=== PATIENT | male | born 1930 | race Asian ===

== ENCOUNTER 2017-05-02 14:47 | Emergency (ER) | payer OTHER, BC ==
[~2017-05-02] VITALS: Ht 152.4 cm; Wt 53.1 kg
[2017-05-02] MEDS ORDERED: LIDODERM 5% P1 PATCH TD (17:27)
[2017-05-02] MEDS ORDERED: FLEXERIL5 MG PO (17:27)
[2017-05-02] MEDS ORDERED: MOTRIN400 MG PO (17:28)
[2017-05-02 17:53] VITALS: BP 111/64
== END 2017-05-02 17:55 | disposition home or self-care (01) ==
LOC: EME 14:47
DX: S22.088A Other fracture of T11-T12 vertebra, initial encounter for closed fracture (principal); M25.511 Pain in right shoulder; W10.9XXA Fall (on) (from) unspecified stairs and steps, initial encounter; R10.9 Unspecified abdominal pain; R19.7 Diarrhea, unspecified
CPT/HCPCS: 70450; 72070; 72100

== ENCOUNTER 2017-10-04 13:22 | Inpatient (IN) | payer OTHER, BC ==
[~2017-10-04] VITALS: Ht 157.5 cm; Wt 52.2 kg
[~2017-10-04 13:22] MED LIST: FLEXERIL5 MG PO; LIDODERM 5% P1 PATCH TD; MOTRIN400 MG PO
[2017-10-04 14:09] LABS: HEMATOCRIT 41.2 % (38.0-50.0); HEMOGLOBIN 13.6 G/DL (12.5-16.6); MCH 30.6 PG (29.0-34.0); MCV 92.8 FL (86-99); PLATELET COUNT 174 K/uL (156-360); RBC DIS.WIDTH-SD 50.1 % (39-53); RED BLOOD COUNT 4.44 M/uL (4.00-5.50); WHITE BLOOD COUNT 8.7 K/uL (4.1-10.2)
[2017-10-04 14:20] LABS: CHLORIDE 110 mEq/L (99-109); SODIUM 149 mEq/L (136-147)
[2017-10-04 14:22] LABS: GLUCOSE 165 mg/dL (70-99)
[2017-10-04 14:26] LABS: CREATININE 0.8 mg/dL (0.6-1.3); GFR ESTIMATE (CALCULATED) > 59 mL/min/ (58.99-99999)
[2017-10-04 14:27] LABS: UREA NITROGEN (BUN) 20 mg/dL (9-23)
[2017-10-04 14:32] LABS: TROP-I INTERPRETATION NEGATIVE; TROPONIN-I 0.09 ng/mL (0.0-0.30)
[2017-10-04] MEDS ORDERED: AUGMENTIN875 MG PO (15:23)
[2017-10-04] MEDS ORDERED: AZITHROMYCIN250 MG1 PO (15:23)
[2017-10-04 17:05] LABS: TROP-I INTERPRETATION NEGATIVE; TROPONIN-I 0.09 ng/mL (0.0-0.30)
[2017-10-04] MEDS ORDERED: LASIX40 MG PO (17:12)
[2017-10-04] MEDS ORDERED: GLUCOPHAGE500 MG PO (17:12)
[2017-10-04] MEDS ORDERED: KLOR-CON 1010 ME1 PO (17:13)
[2017-10-04 19:44] LABS: APPEARANCE TURBID ((CLEAR)); BILIRUBIN SMALL; BLOOD LARGE; GLUCOSE (STRIP) NEGATIVE; KETONES NEGATIVE; LEUKOCYTES MODERATE; NITRITE NEGATIVE; PROTEIN (STRIP) 100; SPECIFIC GRAVITY 1.016 (1.000-1.030)
[2017-10-04 19:48] LABS: COLOR YELLOW ((YELLOW))
[2017-10-04 20:01] LABS: EPITHELIAL CELLS RARE /HPF; WHITE BLOOD CELLS TNTC /HPF (0-5)
[2017-10-04 20:02] LABS: AMORPHOUS URATES CRYSTALS 3+; BACTERIA 4+ /HPF; UCUL ADDED? YES
[2017-10-04 23:00] VITALS: BP 115/68
[2017-10-04 23:19] VITALS: BP 115/68
[2017-10-05 03:59] VITALS: BP 122/58
[2017-10-05 05:03] LABS: HEMATOCRIT 38.6 % (38.0-50.0); HEMOGLOBIN 12.8 G/DL (12.5-16.6); MCH 31.1 PG (29.0-34.0); MCHC 33.2 G/DL (30.0-36.0); MCV 93.7 FL (86-99); RBC DIS.WIDTH-CV 15.3 % (11.8-14.6); RBC DIS.WIDTH-SD 51.8 % (39-53); RED BLOOD COUNT 4.12 M/uL (4.00-5.50); WHITE BLOOD COUNT 7.1 K/uL (4.1-10.2)
[2017-10-05 05:23] LABS: ALBUMIN 3.1 g/dL (3.2-4.8); CHLORIDE 111 mEq/L (99-109); POTASSIUM 3.4 mEq/L (3.7-5.4); SODIUM 144 mEq/L (136-147)
[2017-10-05 05:25] LABS: GLUCOSE 143 mg/dL (70-99)
[2017-10-05 05:26] LABS: TOTAL PROTEIN 5.2 g/dL (6.4-8.3)
[2017-10-05 05:29] LABS: ALKALINE PHOSPHATASE 68 IU/L (3-129); CREATININE 0.7 mg/dL (0.6-1.3); GFR ESTIMATE (CALCULATED) > 59 mL/min/ (58.99-99999)
[2017-10-05 05:30] LABS: UREA NITROGEN (BUN) 18 mg/dL (9-23)
[2017-10-05 05:31] LABS: AST (GOT) 19 IU/L (2-34)
[2017-10-05 05:32] LABS: ALT (GPT) 19 IU/L (3-49)
[2017-10-05 05:55] LABS: PLAT.SUFFICIENCY ADEQUATE; PLATELET COUNT 122 K/uL (156-360)
[2017-10-05 07:29] VITALS: BP 118/71
[2017-10-05 09:24] LABS: HEMOGLOBIN A1c (GLYCOHEMOGLOB) 6.3 % (Below 5.7)
[2017-10-05 11:59] VITALS: BP 136/73
[2017-10-05 16:46] VITALS: BP 128/60
[2017-10-05 20:00] VITALS: BP 145/87
[2017-10-06 00:13] VITALS: BP 127/76
[2017-10-06 03:53] VITALS: BP 112/79
[2017-10-06 06:03] LABS: CHLORIDE 108 MEQ/L (99-109); CREATININE 0.7 MG/DL (0.6-1.3); GFR ESTIMATE (CALCULATED) > 59 mL/min/ (58.99-99999); GLUCOSE 121 mg/dL (70-99); POTASSIUM 3.3 MEQ/L (3.7-5.4); SODIUM 147 MEQ/L (136-147); UREA NITROGEN (BUN) 16 mg/dL (9-23)
[2017-10-06 07:00] VITALS: BP 143/76
[2017-10-06 11:18] VITALS: BP 124/76
[2017-10-06 16:00] VITALS: BP 126/84
[2017-10-06 20:35] VITALS: BP 167/58
[2017-10-07] VITALS (7 sets, daily range): BP systolic 103–172; BP diastolic 59–84
[2017-10-07 07:54] LABS: CHLORIDE 103 MEQ/L (99-109); CREATININE 0.6 MG/DL (0.6-1.3); GFR ESTIMATE (CALCULATED) > 59 mL/min/ (58.99-99999); GLUCOSE 177 mg/dL (70-99); POTASSIUM 3.6 MEQ/L (3.7-5.4); SODIUM 143 MEQ/L (136-147); UREA NITROGEN (BUN) 16 mg/dL (9-23)
[2017-10-08 03:51] VITALS: BP 102/70
[2017-10-08 06:40] LABS: CHLORIDE 107 MEQ/L (99-109); CREATININE 0.7 MG/DL (0.6-1.3); GFR ESTIMATE (CALCULATED) > 59 mL/min/ (58.99-99999); GLUCOSE 123 mg/dL (70-99); POTASSIUM 4.3 MEQ/L (3.7-5.4); SODIUM 144 MEQ/L (136-147); UREA NITROGEN (BUN) 22 mg/dL (9-23)
[2017-10-08 08:15] VITALS: BP 155/74
[2017-10-08 10:59] VITALS: BP 104/66
[2017-10-08 16:08] VITALS: BP 103/67
[2017-10-08 19:25] VITALS: BP 123/77
[2017-10-08 23:40] VITALS: BP 97/53
[2017-10-09 03:46] VITALS: BP 94/53
[2017-10-09 07:20] VITALS: BP 113/68
[2017-10-09 11:30] VITALS: BP 132/65
[2017-10-09 15:22] VITALS: BP 126/74
[2017-10-09] MEDS ORDERED: CARVEDILOL6.25 MG PO (17:44)
[2017-10-09] MEDS ORDERED: DOCUSATE SODIU100 MG PO (17:44)
[2017-10-09] MEDS ORDERED: FUROSEMIDE20 MG PO (17:44)
[2017-10-09] MEDS ORDERED: LISINOPRIL5 MG PO (17:44)
[2017-10-09] MEDS ORDERED: KLOR-CON 1010 ME1 PO (17:44)
[2017-10-09] MEDS ORDERED: KLOR-CON M1010 MEQ PO (17:44)
[2017-10-09] MEDS ORDERED: PREDNISONE10 MG PO (17:44)
[2017-10-09] MEDS ORDERED: ASPIR-LOW81 MG PO (17:44)
== END 2017-10-09 18:26 | disposition home or self-care (01) | DRG 193 ==
LOC: EME 13:22 → 3EAST 16:19 → EDOF 16:19 → ENRESERV 17:18 → 3EAST 22:40
PROVIDERS: Emergency Medicine Emergency Medical Services; Internal Medicine; Internal Medicine Cardiovascular Disease
DX: J18.9 Pneumonia, unspecified organism (principal); I11.0 Hypertensive heart disease with heart failure; I50.23 Acute on chronic systolic (congestive) heart failure; E87.6 Hypokalemia; R09.02 Hypoxemia; I08.2 Rheumatic disorders of both aortic and tricuspid valves; I27.20 Pulmonary hypertension, unspecified; N39.0 Urinary tract infection, site not specified; L03.113 Cellulitis of right upper limb; I42.0 Dilated cardiomyopathy; I47.1 Supraventricular tachycardia; M48.00 Spinal stenosis, site unspecified; E11.9 Type 2 diabetes mellitus without complications; N40.0 Benign prostatic hyperplasia without lower urinary tract symptoms; H91.90 Unspecified hearing loss, unspecified ear
CPT/HCPCS: 71045; 71046; 71260; 80048; 80053; 81003; 82948; 83036; 83880; 84153; 84484; 85027; 87040; 87077; 87086; 87186; 93005; 93306; 94640; 94640 76; 99281; 99285; J0456; J0696; J1644; J1815; J1940; J7512

== ENCOUNTER 2018-01-03 13:08 | Inpatient (IN) | payer OTHER, BC ==
[~2018-01-03] VITALS: Ht 154.9 cm; Wt 62.1 kg
[~2018-01-03 13:08] MED LIST changes: +ASPIR-LOW81 MG PO; +AUGMENTIN875 MG PO; +AZITHROMYCIN250 MG1 PO; +CARVEDILOL6.25 MG PO; +DOCUSATE SODIU100 MG PO; +FUROSEMIDE20 MG PO; +GLUCOPHAGE500 MG PO; +KLOR-CON 1010 ME1 PO; +KLOR-CON M1010 MEQ PO; +LASIX40 MG PO; +LISINOPRIL5 MG PO; +PREDNISONE10 MG PO
[2018-01-03 13:44] LABS: HEMATOCRIT 32.7 % (38.0-50.0); HEMOGLOBIN 10.9 G/DL (12.5-16.6); MCH 30.4 PG (29.0-34.0); MCHC 33.3 G/DL (30.0-36.0); MCV 91.3 FL (86-99); PLATELET COUNT 78 K/uL (156-360); RBC DIS.WIDTH-CV 13.2 % (11.8-14.6); RBC DIS.WIDTH-SD 44.7 % (39-53); RED BLOOD COUNT 3.58 M/uL (4.00-5.50); WHITE BLOOD COUNT 5.7 K/uL (4.1-10.2)
[2018-01-03 13:57] LABS: CHLORIDE 102 mEq/L (99-109); POTASSIUM 3.7 mEq/L (3.7-5.4); SODIUM 137 mEq/L (136-147)
[2018-01-03 13:59] LABS: GLUCOSE 158 mg/dL (70-99)
[2018-01-03 14:03] LABS: CREATININE 0.9 mg/dL (0.6-1.3); GFR ESTIMATE (CALCULATED) > 59 mL/min/ (58.99-99999); UREA NITROGEN (BUN) 18 mg/dL (9-23)
[2018-01-03 15:11] LABS: ABS NEUTROPHIL COUNT 5.4; ANISOCYTOSIS 1+; BAND NEUTROPHILS 37.7 % (0-8.0); EOSINOPHIL ABS CT 0; LYMPHOCYTES 1.7 % (15.0-45.0); METAMYELOCYTES 1.8 %; MYELOCYTES 1.8 %; NUCLEATED RBC'S 0.9
[2018-01-03] MEDS ORDERED: ENTRESTO 24 MG1 EACH PO (17:12)
[2018-01-03] MEDS ORDERED: FINASTERIDE5 MG PO (17:14)
[2018-01-03] MEDS ORDERED: TAMSULOSIN HCL0.4 MG PO (17:15)
[2018-01-03] MEDS ORDERED: ULTRAM50 MG PO (17:15)
[2018-01-03] MEDS ORDERED: BAYER BACK & B1 EACH PO (17:16)
[2018-01-03 19:27] LABS: HEMATOCRIT 28.4 % (38.0-50.0); HEMOGLOBIN 9.5 G/DL (12.5-16.6); MCH 30.4 PG (29.0-34.0); MCHC 33.5 G/DL (30.0-36.0); MCV 90.7 FL (86-99); PLATELET COUNT 71 K/uL (156-360); RBC DIS.WIDTH-CV 13.4 % (11.8-14.6); RED BLOOD COUNT 3.13 M/uL (4.00-5.50); WHITE BLOOD COUNT 14.2 K/uL (4.1-10.2)
[2018-01-03 19:37] LABS: CHLORIDE 103 mEq/L (99-109); POTASSIUM 3.5 mEq/L (3.7-5.4); SODIUM 137 mEq/L (136-147)
[2018-01-03 19:38] LABS: GLUCOSE 198 mg/dL (70-99)
[2018-01-03 19:42] LABS: CREATININE 0.9 mg/dL (0.6-1.3); GFR ESTIMATE (CALCULATED) > 59 mL/min/ (58.99-99999)
[2018-01-03 19:43] LABS: UREA NITROGEN (BUN) 20 mg/dL (9-23)
[2018-01-03 19:45] VITALS: BP 118/63
[2018-01-03 20:00] VITALS: BP 107/77
[2018-01-03 20:08] LABS: ABS NEUTROPHIL COUNT 13.7; ANISOCYTOSIS 1+; EOSINOPHIL ABS CT 0; MACROCYTES 1+; MONOCYTES 3.5 % (0-9.0); PLAT.SUFFICIENCY DECREASED; SEG.NEUTROPHILS 38.6 % (46.0-76.0)
[2018-01-03 20:17] LABS: BAND NEUTROPHILS 57.9 % (0-8.0)
[2018-01-03 21:00] VITALS: BP 108/55
[2018-01-03 22:00] VITALS: BP 91/59
[2018-01-03 22:55] VITALS: BP 100/58
[2018-01-04] VITALS (27 sets, daily range): BP systolic 69–119; BP diastolic 42–79
[2018-01-04 05:53] LABS: BASOPHIL (%) 0.2 % (0-1); EOSINOPHIL (%) 0 % (0-5); HEMATOCRIT 33.5 % (38.0-50.0); HEMOGLOBIN 10.7 G/DL (12.5-16.6); IMMATURE GRANULOCYTE (%) 3.1 % (0.0-0.7); LYMPHOCYTE (%) 1.5 % (15-42); LYMPHOCYTE COUNT 0.2 K/uL (1.0-2.8); MCH 29.6 PG (29.0-34.0); MCHC 31.9 G/DL (30.0-36.0); MCV 92.5 FL (86-99); MONOCYTE (%) 2.7 % (3-12); MONOCYTE COUNT 0.4 K/uL (0-0.8); NEUTROPHIL (%) 92.5 % (45-76); NEUTROPHIL COUNT 11.8 K/uL (1.8-6.4); PLATELET COUNT 85 K/uL (156-360); RBC DIS.WIDTH-CV 13.6 % (11.8-14.6); RBC DIS.WIDTH-SD 46.5 % (39-53); RED BLOOD COUNT 3.62 M/uL (4.00-5.50); WHITE BLOOD COUNT 12.7 K/uL (4.1-10.2)
[2018-01-04 06:18] LABS: ALBUMIN 2.7 G/DL (3.2-4.8); ALKALINE PHOSPHATASE 52 IU/L (3-129); ALT (GPT) 16 IU/L (3-49); AST (GOT) 38 IU/L (2-34); CHLORIDE 105 MEQ/L (99-109); CREATININE 0.7 MG/DL (0.6-1.3); GFR ESTIMATE (CALCULATED) > 59 mL/min/ (58.99-99999); GLUCOSE 167 mg/dL (70-99); MAGNESIUM 1.9 mg/dl (1.3-2.7); PHOSPHORUS 3.3 mg/dL (2.5-4.9); POTASSIUM 3.5 MEQ/L (3.7-5.4); SODIUM 138 MEQ/L (136-147); TOTAL BILIRUBIN 0.6 MG/DL (0.0-1.0); TOTAL PROTEIN 5.2 G/DL (6.4-8.3); UREA NITROGEN (BUN) 18 mg/dL (9-23)
[2018-01-04 09:56] LABS: APPEARANCE CLOUDY ((CLEAR)); BILIRUBIN NEGATIVE; BLOOD MODERATE; COLOR YELLOW ((YELLOW)); GLUCOSE (STRIP) NEGATIVE; KETONES 5; LEUKOCYTES LARGE; NITRITE NEGATIVE; PROTEIN (STRIP) 30; SPECIFIC GRAVITY 1.021 (1.000-1.030); UROBILINOGEN 0.2 MG/DL (0.2-1.0)
[2018-01-04 10:10] LABS: BACTERIA 1+ /HPF; EPITHELIAL CELLS NONE SEEN /HPF; MUCUS NONE SEEN /LPF; RED BLOOD CELLS 30-40 /HPF (0-5); WHITE BLOOD CELLS 40-50 /HPF (0-5)
[2018-01-05] VITALS (17 sets, daily range): BP systolic 77–149; BP diastolic 52–108
[2018-01-05 05:49] LABS: HEMATOCRIT 33.5 % (38.0-50.0); MCH 29.4 PG (29.0-34.0); MCHC 32.8 G/DL (30.0-36.0); MCV 89.6 FL (86-99); PLATELET COUNT 94 K/uL (156-360); RBC DIS.WIDTH-CV 13.6 % (11.8-14.6); RBC DIS.WIDTH-SD 44.6 % (39-53); RED BLOOD COUNT 3.74 M/uL (4.00-5.50); WHITE BLOOD COUNT 9.5 K/uL (4.1-10.2)
[2018-01-05 06:22] LABS: CHLORIDE 114 MEQ/L (99-109); CREATININE 0.7 MG/DL (0.6-1.3); GFR ESTIMATE (CALCULATED) > 59 mL/min/ (58.99-99999); GLUCOSE 167 mg/dL (70-99); POTASSIUM 3.6 MEQ/L (3.7-5.4); SODIUM 140 MEQ/L (136-147); UREA NITROGEN (BUN) 20 mg/dL (9-23)
[2018-01-05 06:27] LABS: MAGNESIUM 2.2 mg/dl (1.3-2.7); PHOSPHORUS 1.9 mg/dL (2.5-4.9)
[2018-01-05 07:37] LABS: ABS NEUTROPHIL COUNT 8.7; ANISOCYTOSIS 2+; BAND NEUTROPHILS 39.8 % (0-8.0); BURR CELLS 1+; EOSINOPHIL ABS CT 0; LYMPHOCYTES 1.8 % (15.0-45.0); MACROCYTES 2+; MONOCYTES 7.1 % (0-9.0); PLAT.SUFFICIENCY DECREASED; POIKILOCYTOSIS 2+; SEG.NEUTROPHILS 51.3 % (46.0-76.0)
[2018-01-05 18:22] LABS: COMMENTS - BLOOD GASES A+C+; DEVICE 840; FI02 100 %; MODE A/C; SITE LR
[2018-01-05 18:23] LABS: MECHANICAL RATE 16 resp/min; PEEP 5 CM/H20; TIDAL VOLUME 420 ML; TOTAL RESP RATE 16 resp/min
[2018-01-05 18:24] LABS: BASE EXCESS -12.6 mEq/L (-3 to +3); BICARBONATE 14.4 mEq/L (22-26); CARBOXY HGB 1.4 % (0-5); METHEMOGLOBIN 1.2 % (0-1.5); PCO2 36 mm Hg (35-45); PO2 207 mm Hg (80-100)
[2018-01-05 18:25] LABS: pH 7.21 (7.35-7.45)
[2018-01-05 19:01] LABS: TROP-I INTERPRETATION INDETERMINATE; TROPONIN-I 0.31 ng/mL (0.0-0.30)
[2018-01-05 19:07] LABS: INTER. NORMALIZED RATIO 1.1
[2018-01-05 19:09] LABS: HEMATOCRIT 36.9 % (38.0-50.0); HEMOGLOBIN 11.6 G/DL (12.5-16.6); MCH 29.9 PG (29.0-34.0); MCHC 31.4 G/DL (30.0-36.0); NRBC (%) 0.3 /100 WBC (0-0); RBC DIS.WIDTH-CV 14.2 % (11.8-14.6); RBC DIS.WIDTH-SD 49.8 % (39-53); RED BLOOD COUNT 3.88 M/uL (4.00-5.50)
[2018-01-05 19:10] LABS: PTT 38.6 SEC (25-37)
[2018-01-05 19:15] LABS: ABS NEUTROPHIL COUNT 13.3; ANISOCYTOSIS 2+; BAND NEUTROPHILS 52.2 % (0-8.0); BURR CELLS 1+; EOSINOPHIL ABS CT 0; LYMPHOCYTES 6.1 % (15.0-45.0); MACROCYTES 2+; METAMYELOCYTES 0.8 %; MONOCYTES 3.5 % (0-9.0); OTHER 0.9; OVALOCYTES 1+; PLAT.SUFFICIENCY ADEQUATE; POIKILOCYTOSIS 1+; SCHISTOCYTES 1+; SEG.NEUTROPHILS 36.5 % (46.0-76.0); SMUDGE CELLS 5.2
[2018-01-05 19:20] LABS: MCV 95.1 FL (86-99); PLATELET COUNT 126 K/uL (156-360)
[2018-01-05 20:17] LABS: CHLORIDE 114 MEQ/L (99-109); CKMB RELATIVE INDEX 5.5 (0.0-3.9); CREATINE KINASE 128 IU/L (1-294); CREATININE 0.7 MG/DL (0.6-1.3); GFR ESTIMATE (CALCULATED) > 59 mL/min/ (58.99-99999); GLUCOSE 216 mg/dL (70-99); MAGNESIUM 2.2 mg/dl (1.3-2.7); PHOSPHORUS 4.5 mg/dL (2.5-4.9); POTASSIUM 3.6 MEQ/L (3.7-5.4); SODIUM 141 MEQ/L (136-147); TOTAL CK 128 IU/L (1-294); UREA NITROGEN (BUN) 19 mg/dL (9-23)
[2018-01-05 21:55] LABS: COMMENTS - BLOOD GASES A+C+; DEVICE VENT; FI02 100 %; MECHANICAL RATE 20 resp/min; MODE ACVC; PCO2 29 mm Hg (35-45); PEEP 5 CM/H20; SITE LR; TIDAL VOLUME 420 ML; TOTAL RESP RATE 20 resp/min; pH 7.35 (7.35-7.45)
[2018-01-05 21:56] LABS: BASE EXCESS -8.5 mEq/L (-3 to +3); BICARBONATE 16 mEq/L (22-26); CARBOXY HGB 1.1 % (0-5); METHEMOGLOBIN 0.9 % (0-1.5); O2 SATURATION (CALCULATED) 99.5 % (95-99); PO2 357 mm Hg (80-100)
[2018-01-06] VITALS (23 sets, daily range): BP systolic 66–130; BP diastolic 48–83
[2018-01-06 01:17] LABS: INTER. NORMALIZED RATIO 1.2
[2018-01-06 01:18] LABS: POTASSIUM 3.7 mEq/L (3.7-5.4); SODIUM 142 mEq/L (136-147)
[2018-01-06 01:20] LABS: GLUCOSE 191 mg/dL (70-99)
[2018-01-06 01:24] LABS: CREATININE 0.7 mg/dL (0.6-1.3); GFR ESTIMATE (CALCULATED) > 59 mL/min/ (58.99-99999); PHOSPHORUS 2.1 mg/dL (2.5-4.9)
[2018-01-06 01:25] LABS: UREA NITROGEN (BUN) 18 mg/dL (9-23)
[2018-01-06 01:27] LABS: CREATINE KINASE 172 IU/L (1-294); TOTAL CK 172 IU/L (1-294)
[2018-01-06 01:33] LABS: CK-MB 7.8 ng/mL (0.0-4.9); CKMB RELATIVE INDEX 4.5 (0.0-3.9)
[2018-01-06 01:34] LABS: TROP-I INTERPRETATION INDETERMINATE; TROPONIN-I 0.31 ng/mL (0.0-0.30)
[2018-01-06 01:36] LABS: CHLORIDE 116 mEq/L (99-109)
[2018-01-06 05:07] LABS: INTER. NORMALIZED RATIO 1.2
[2018-01-06 05:11] LABS: HEMATOCRIT 30.5 % (38.0-50.0); HEMOGLOBIN 10.4 G/DL (12.5-16.6); MCH 30.2 PG (29.0-34.0); MCHC 34.1 G/DL (30.0-36.0); NRBC (%) 0.3 /100 WBC (0-0); RBC DIS.WIDTH-CV 13.8 % (11.8-14.6); RBC DIS.WIDTH-SD 44.9 % (39-53); RED BLOOD COUNT 3.44 M/uL (4.00-5.50); WHITE BLOOD COUNT 7.8 K/uL (4.1-10.2)
[2018-01-06 05:13] LABS: MCV 88.7 FL (86-99)
[2018-01-06 05:15] LABS: CHLORIDE 117 mEq/L (99-109); POTASSIUM 3.5 mEq/L (3.7-5.4); SODIUM 143 mEq/L (136-147); TROP-I INTERPRETATION NEGATIVE; TROPONIN-I 0.28 ng/mL (0.0-0.30)
[2018-01-06 05:17] LABS: GLUCOSE 175 mg/dL (70-99)
[2018-01-06 05:20] LABS: PHOSPHORUS 2.1 mg/dL (2.5-4.9)
[2018-01-06 05:21] LABS: CREATININE 0.7 mg/dL (0.6-1.3); GFR ESTIMATE (CALCULATED) > 59 mL/min/ (58.99-99999)
[2018-01-06 05:22] LABS: UREA NITROGEN (BUN) 18 mg/dL (9-23)
[2018-01-06 05:23] LABS: CREATINE KINASE 160 IU/L (1-294); TOTAL CK 160 IU/L (1-294)
[2018-01-06 05:34] LABS: CK-MB 7.2 ng/mL (0.0-4.9); CKMB RELATIVE INDEX 4.5 (0.0-3.9)
[2018-01-06 05:50] LABS: ABS NEUTROPHIL COUNT 6.6; ANISOCYTOSIS 2+; ATYPICAL LYMPHOCYTE 0.9 %; BURR CELLS 2+; EOSINOPHIL ABS CT 0.1; EOSINOPHILS 0.9 % (0-5.0); LYMPHOCYTES 7.9 % (15.0-45.0); MACROCYTES 2+; MONOCYTES 4.4 % (0-9.0); MYELOCYTES 1.7 %; PLAT.SUFFICIENCY VERY DECREASED; POIKILOCYTOSIS 2+; SCHISTOCYTES 1+
[2018-01-06 05:53] LABS: BAND NEUTROPHILS 11.4 % (0-8.0); PLATELET COUNT 85 K/uL (156-360); SEG.NEUTROPHILS 72.8 % (46.0-76.0)
[2018-01-06 12:30] LABS: INTER. NORMALIZED RATIO 1.1
[2018-01-06 12:34] LABS: CHLORIDE 117 mEq/L (99-109); POTASSIUM 3.6 mEq/L (3.7-5.4); SODIUM 144 mEq/L (136-147)
[2018-01-06 12:35] LABS: MAGNESIUM 2.1 mg/dL (1.3-2.7)
[2018-01-06 12:36] LABS: GLUCOSE 181 mg/dL (70-99)
[2018-01-06 12:40] LABS: CREATININE 0.7 mg/dL (0.6-1.3); GFR ESTIMATE (CALCULATED) > 59 mL/min/ (58.99-99999); PHOSPHORUS 1.8 mg/dL (2.5-4.9)
[2018-01-06 12:41] LABS: UREA NITROGEN (BUN) 17 mg/dL (9-23)
[2018-01-06 20:51] LABS: M. pneumoniae Ab, IgG 1.83 (<=0.90)
[2018-01-07] VITALS (25 sets, daily range): BP systolic 77–140; BP diastolic 46–94
[2018-01-07 06:01] LABS: HEMATOCRIT 29.4 % (38.0-50.0); MCH 29.9 PG (29.0-34.0); MCV 87.8 FL (86-99); PLATELET COUNT 97 K/uL (156-360); RBC DIS.WIDTH-CV 14.1 % (11.8-14.6); RBC DIS.WIDTH-SD 44.5 % (39-53); RED BLOOD COUNT 3.35 M/uL (4.00-5.50); WHITE BLOOD COUNT 5.1 K/uL (4.1-10.2)
[2018-01-07 06:23] LABS: CHLORIDE 114 MEQ/L (99-109); CREATININE 0.6 MG/DL (0.6-1.3); GFR ESTIMATE (CALCULATED) > 59 mL/min/ (58.99-99999); GLUCOSE 225 mg/dL (70-99); SODIUM 143 MEQ/L (136-147); UREA NITROGEN (BUN) 18 mg/dL (9-23)
[2018-01-07 06:59] LABS: ABS NEUTROPHIL COUNT 4.7; ANISOCYTOSIS 2+; BAND NEUTROPHILS 9.9 % (0-8.0); BURR CELLS 3+; EOSINOPHIL ABS CT 0; HEMATOLOGY COMMENT 1 SN; LYMPHOCYTES 3.6 % (15.0-45.0); MACROCYTES 2+; METAMYELOCYTES 0.9 %; MONOCYTES 3.6 % (0-9.0); NUCLEATED RBC'S 0.9; OVALOCYTES 2+; PLAT.SUFFICIENCY DECREASED; POIKILOCYTOSIS 3+; POLYCHROMASIA 1+; TOXIC GRANULATION 1+
[2018-01-07 08:21] LABS: MAGNESIUM 2.1 mg/dl (1.3-2.7)
[2018-01-07 08:22] LABS: PHOSPHORUS 1.5 mg/dL (2.5-4.9)
[2018-01-08] VITALS (17 sets, daily range): BP systolic 97–157; BP diastolic 61–94
[2018-01-08 05:44] LABS: HEMATOCRIT 27.2 % (38.0-50.0); HEMOGLOBIN 9.3 G/DL (12.5-16.6); MCH 29.9 PG (29.0-34.0); MCHC 34.2 G/DL (30.0-36.0); MCV 87.5 FL (86-99); PLATELET COUNT 92 K/uL (156-360); RBC DIS.WIDTH-CV 14.2 % (11.8-14.6); RBC DIS.WIDTH-SD 45.4 % (39-53); RED BLOOD COUNT 3.11 M/uL (4.00-5.50); WHITE BLOOD COUNT 4.5 K/uL (4.1-10.2)
[2018-01-08 06:08] LABS: CHLORIDE 117 MEQ/L (99-109); CREATININE 0.4 MG/DL (0.6-1.3); GFR ESTIMATE (CALCULATED) > 59 mL/min/ (58.99-99999); GLUCOSE 126 mg/dL (70-99); MAGNESIUM 2.1 mg/dl (1.3-2.7); SODIUM 148 MEQ/L (136-147); UREA NITROGEN (BUN) 12 mg/dL (9-23)
[2018-01-08 06:15] LABS: POTASSIUM 3.9 MEQ/L (3.7-5.4)
[2018-01-08 06:16] LABS: ABS NEUTROPHIL COUNT 3.7; ANISOCYTOSIS 2+; ATYPICAL LYMPHOCYTE 0.9 %; BAND NEUTROPHILS 3.5 % (0-8.0); BASOPHILS 1.7 %; BURR CELLS 1+; EOSINOPHIL ABS CT 0.1; EOSINOPHILS 1.8 % (0-5.0); LYMPHOCYTES 9.6 % (15.0-45.0); MACROCYTES 2+; MONOCYTES 1.7 % (0-9.0); MYELOCYTES 1.7 %; NUCLEATED RBC'S 0.9; OVALOCYTES 1+; PLAT.SUFFICIENCY DECREASED; POIKILOCYTOSIS 1+; SEG.NEUTROPHILS 79.1 % (46.0-76.0)
[2018-01-09] VITALS (8 sets, daily range): BP systolic 119–181; BP diastolic 60–90
[2018-01-09 10:26] LABS: TROP-I INTERPRETATION NEGATIVE; TROPONIN-I 0.12 ng/mL (0.0-0.30)
[2018-01-09 10:29] LABS: HEMOGLOBIN 10.1 G/DL (12.5-16.6); MCHC 32.6 G/DL (30.0-36.0); MCV 89.1 FL (86-99); RBC DIS.WIDTH-CV 14.3 % (11.8-14.6); RED BLOOD COUNT 3.48 M/uL (4.00-5.50); WHITE BLOOD COUNT 5.9 K/uL (4.1-10.2)
[2018-01-09 10:30] LABS: PLATELET COUNT 129 K/uL (156-360)
[2018-01-09 10:53] LABS: CHLORIDE 115 MEQ/L (99-109); CREATININE 0.5 MG/DL (0.6-1.3); GFR ESTIMATE (CALCULATED) > 59 mL/min/ (58.99-99999); GLUCOSE 185 mg/dL (70-99); POTASSIUM 3.8 MEQ/L (3.7-5.4); SODIUM 148 MEQ/L (136-147); UREA NITROGEN (BUN) 12 mg/dL (9-23)
[2018-01-09 13:26] LABS: PTT 35.8 SEC (25-37)
[2018-01-10 05:59] VITALS: BP 114/65
[2018-01-10 06:13] LABS: TROP-I INTERPRETATION NEGATIVE; TROPONIN-I 0.08 ng/mL (0.0-0.30)
[2018-01-10 06:26] LABS: CHLORIDE 111 MEQ/L (99-109); CREATININE 0.5 MG/DL (0.6-1.3); GFR ESTIMATE (CALCULATED) > 59 mL/min/ (58.99-99999); GLUCOSE 200 mg/dL (70-99); POTASSIUM 3.9 MEQ/L (3.7-5.4); SODIUM 148 MEQ/L (136-147); UREA NITROGEN (BUN) 16 mg/dL (9-23)
[2018-01-10 07:48] VITALS: BP 129/87
[2018-01-10 11:16] VITALS: BP 130/78
[2018-01-10 15:47] VITALS: BP 127/70
[2018-01-10 19:16] VITALS: BP 127/66
[2018-01-10 22:42] VITALS: BP 141/75
[2018-01-11 03:26] VITALS: BP 133/77
[2018-01-11 06:51] VITALS: BP 118/75
[2018-01-11 11:10] VITALS: BP 137/71
[2018-01-11 19:48] VITALS: BP 130/77
[2018-01-11 23:42] VITALS: BP 135/67
[2018-01-12 03:53] VITALS: BP 125/69
[2018-01-12 08:05] VITALS: BP 126/84
[2018-01-12 11:04] VITALS: BP 144/78
[2018-01-12 13:03] LABS: CHLORIDE 106 MEQ/L (99-109); CREATININE 0.5 MG/DL (0.6-1.3); GFR ESTIMATE (CALCULATED) > 59 mL/min/ (58.99-99999); GLUCOSE 164 mg/dL (70-99); SODIUM 147 MEQ/L (136-147); UREA NITROGEN (BUN) 19 mg/dL (9-23)
[2018-01-12 15:45] VITALS: BP 158/81
[2018-01-12 19:42] VITALS: BP 141/64
[2018-01-13] VITALS (7 sets, daily range): BP systolic 119–155; BP diastolic 69–88
[2018-01-13 10:29] LABS: CHLORIDE 103 MEQ/L (99-109); CREATININE 0.6 MG/DL (0.6-1.3); GFR ESTIMATE (CALCULATED) > 59 mL/min/ (58.99-99999); GLUCOSE 201 mg/dL (70-99); POTASSIUM 3.1 MEQ/L (3.7-5.4); SODIUM 144 MEQ/L (136-147); UREA NITROGEN (BUN) 19 mg/dL (9-23)
[2018-01-14 04:07] VITALS: BP 124/90
[2018-01-14 07:15] VITALS: BP 119/71
[2018-01-14 14:02] LABS: CHLORIDE 101 MEQ/L (99-109); CREATININE 0.6 MG/DL (0.6-1.3); GFR ESTIMATE (CALCULATED) > 59 mL/min/ (58.99-99999); GLUCOSE 230 mg/dL (70-99); POTASSIUM 3.6 MEQ/L (3.7-5.4); SODIUM 140 MEQ/L (136-147); UREA NITROGEN (BUN) 16 mg/dL (9-23)
[2018-01-14 23:24] VITALS: BP 155/75
[2018-01-15 07:20] VITALS: BP 149/70
[2018-01-15 15:20] VITALS: BP 133/67
[2018-01-15 22:50] VITALS: BP 129/73
[2018-01-16 07:10] VITALS: BP 161/65
[2018-01-16 15:40] VITALS: BP 129/67
[2018-01-16 22:58] VITALS: BP 122/68
[2018-01-17 07:05] VITALS: BP 117/59
[2018-01-17 16:00] VITALS: BP 130/62
[2018-01-17 20:45] VITALS: BP 145/71
== END 2018-01-17 21:44 | DRG 871 ==
LOC: EME 13:08 → 4WEST 16:10 → EDOF 16:10 → CANRESERV 17:22 → ENRESERV 17:22 → 4WEST 20:05 → CANRESERV 01-05 11:56 → ENRESERV 01-05 11:56 → CANRESERV 01-05 16:07 → ENRESERV 01-05 16:07 → 4WEST 01-05 18:36 → ENRESERV 01-08 15:24 → 5EAST 01-08 19:20 → ENRESERV 01-11 → 5EAST 01-11 14:48
PROVIDERS: Internal Medicine; Internal Medicine Cardiovascular Disease; Psychiatry & Neurology Child & Adolescent Psychiatry; Specialist
DX: A41.9 Sepsis, unspecified organism (principal); G93.40 Encephalopathy, unspecified; J18.0 Bronchopneumonia, unspecified organism; I46.9 Cardiac arrest, cause unspecified; E87.2 Acidosis; I42.0 Dilated cardiomyopathy; N39.0 Urinary tract infection, site not specified; I20.0 Unstable angina; G93.1 Anoxic brain damage, not elsewhere classified; R26.2 Difficulty in walking, not elsewhere classified; R41.0 Disorientation, unspecified; I27.20 Pulmonary hypertension, unspecified; D64.9 Anemia, unspecified; E86.0 Dehydration; I50.9 Heart failure, unspecified; E11.9 Type 2 diabetes mellitus without complications; R00.0 Tachycardia, unspecified; I08.2 Rheumatic disorders of both aortic and tricuspid valves; R54 Age-related physical debility; E87.6 Hypokalemia; B96.1 Klebsiella pneumoniae [K. pneumoniae] as the cause of diseases classified elsewhere; R09.02 Hypoxemia; H91.90 Unspecified hearing loss, unspecified ear; I25.5 Ischemic cardiomyopathy; I11.0 Hypertensive heart disease with heart failure; R65.20 Severe sepsis without septic shock; Z87.01 Personal history of pneumonia (recurrent); R32 Unspecified urinary incontinence; R07.9 Chest pain, unspecified; N40.0 Benign prostatic hyperplasia without lower urinary tract symptoms
CPT/HCPCS: 36600; 70450; 71045; 71046; 80048; 80048 91; 80053; 80202; 81003; 82330; 82550; 82550 91; 82553; 82948; 83605; 83735; 83880; 84100; 84484; 85025; 85025 91; 85027; 85610; 85730; 86738 90; 87040; 87070; 87077; 87086; 87106; 87186; 87205; 87449; 87641; 87801; 93005; 93306; 94002; 94003; 94640; 94760; 94799; 97530 GO; 97530 GP; 99281; 99285; C1751; J0295; J0456; J1644; J1815; J1940; J2543; J2704; J2920; J2930; J3370; J3475; J3480; J7030; J7040; J7050; J7512; S0028

== ENCOUNTER 2018-02-16 08:54 | Emergency (ER) | payer OTHER, BC ==
[~2018-02-16] VITALS: Ht 162.6 cm; Wt 52.5 kg
[~2018-02-16 08:54] MED LIST changes: +BAYER BACK & B1 EACH PO; +ENTRESTO 24 MG1 EACH PO; +FINASTERIDE5 MG PO; +TAMSULOSIN HCL0.4 MG PO; +ULTRAM50 MG PO
[2018-02-16 09:58] LABS: HEMATOCRIT 34.1 % (38.0-50.0); HEMOGLOBIN 11.2 G/DL (12.5-16.6); MCH 30.3 PG (29.0-34.0); MCHC 32.8 G/DL (30.0-36.0); MCV 92.2 FL (86-99); PLATELET COUNT 210 K/uL (156-360); RBC DIS.WIDTH-CV 15.3 % (11.8-14.6); RBC DIS.WIDTH-SD 52.3 % (39-53); WHITE BLOOD COUNT 18.9 K/uL (4.1-10.2)
[2018-02-16 10:06] LABS: CHLORIDE 102 mEq/L (99-109); POTASSIUM 4.1 mEq/L (3.7-5.4); SODIUM 138 mEq/L (136-147)
[2018-02-16 10:08] LABS: GLUCOSE 139 mg/dL (70-99)
[2018-02-16 10:12] LABS: CREATININE 0.6 mg/dL (0.6-1.3); GFR ESTIMATE (CALCULATED) > 59 mL/min/ (58.99-99999)
[2018-02-16 10:13] LABS: UREA NITROGEN (BUN) 8 mg/dL (9-23)
[2018-02-16 11:22] LABS: APPEARANCE SL.HAZY ((CLEAR)); BILIRUBIN NEGATIVE; BLOOD SMALL; COLOR YELLOW ((YELLOW)); GLUCOSE (STRIP) NEGATIVE; KETONES 5; LEUKOCYTES LARGE; NITRITE NEGATIVE; PROTEIN (STRIP) 30; SPECIFIC GRAVITY 1.012 (1.000-1.030); UROBILINOGEN 0.2 MG/DL (0.2-1.0)
[2018-02-16 11:27] LABS: BACTERIA 1+ /HPF; EPITHELIAL CELLS NONE SEEN /HPF; MUCUS TRACE /LPF; RED BLOOD CELLS TNTC /HPF (0-5); UCUL ADDED? YES; WHITE BLOOD CELLS TNTC /HPF (0-5)
[2018-02-16] MEDS ORDERED: LEVAQUIN750 MG PO (11:32)
[2018-02-16 12:08] VITALS: BP 107/69
== END 2018-02-16 12:09 | disposition home or self-care (01) ==
LOC: EME 08:54
PROVIDERS: Emergency Medicine Emergency Medical Services
DX: S00.03XA Contusion of scalp, initial encounter (principal); S39.012A Strain of muscle, fascia and tendon of lower back, initial encounter; N39.0 Urinary tract infection, site not specified; W18.30XA Fall on same level, unspecified, initial encounter; Y93.89 Activity, other specified; I11.0 Hypertensive heart disease with heart failure; I50.9 Heart failure, unspecified; K21.9 Gastro-esophageal reflux disease without esophagitis; Z87.891 Personal history of nicotine dependence
CPT/HCPCS: 70450; 71045; 80048; 81003; 85027; 87086; 93005; 99281; 99284